=== PATIENT | female | born 1940 | race Caucasian/White ===

== ENCOUNTER 2020-01-13 22:21 | Emergency (ER) | payer MEDICARE, OTHER ==
[2020-01-13 22:44] VITALS: BP 174/89; PULSE 66
--- NOTE | 2020-01-13 22:54 | EDM.PDOC ---
ED HPI GENERAL MEDICAL PROBLEM - General Chief Complaint: General Stated Complaint: VISION PROBLEMS Time Seen by Provider: 01/13/20 22:51 Source of Information: Reports: Patient History Limitations: Reports: No Limitations - History of Present Illness INITIAL COMMENTS - FREE TEXT/NARRATIVE: c/o on-off visual problem where things look distorted today. take coumadin for it past 30 years, denies TAVARES/ hitting head, denies blurred or double vision. right now everything is normal. - Related Data Allergies Allergy/AdvReac Type Severity Reaction Status Date / Time pravastatin [From Pravachol] Allergy Cannot Verified 01/13/20 22:54 Remember Home Meds: Home Meds Acetaminophen [Tylenol Extra Strength] 1 tab PO Q6H PRN 10/08/16 [History] Celecoxib [CeleBREX] 200 mg PO DAILY 10/08/16 [History] HCTZ/Triamterene [Maxzide 25-37.5 MG] 1 tab PO DAILY 10/08/16 [History] Omeprazole 20 mg PO DAILY 10/08/16 [History] Oxybutynin Chloride 5 mg PO DAILY PRN 10/08/16 [History] Warfarin Sodium [Coumadin] 7.5 mg PO .6 DAYS A WEEK 10/08/16 [History] Warfarin [Coumadin] 5 mg PO .Friday10/08/16 [History] atenoloL [Tenormin] 50 mg PO BID 10/08/16 [History] Betamethasone/Clotrimazole [Lotrisone] 15 gm TOP BID PRN 01/13/20 [History] Calcium Carb, Citrate/Vit D3 [Calcium + D3 ER Tablet] 1,500 mg PO DAILY 01/13/20 [History] Losartan Potassium 50 mg PO BEDTIME 01/13/20 [History] Rosuvastatin Calcium 20 mg PO BEDTIME 01/13/20 [History] Ubidecarenone [Co Q-10] 100 mg PO BEDTIME 01/13/20 [History] polyethylene glycoL 3350 [Miralax] 17 gm PO ASDIRECTED PRN 01/13/20 [History] rOPINIRole [Requip] 2 mg PO BEDTIME 01/13/20 [History] Past Medical History HEENT History: Reports: Cataract Cardiovascular History: Reports: Blood Clots/VTE/DVT, Hypertension, Other (See Below) Other Cardiovascular History: 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 Gastrointestinal History: Reports: Chronic Constipation, GERD, Irritable Bowel Syndrome Genitourinary History: Reports: Other (See Below) Other Genitourinary History: overactive bladder Musculoskeletal History: Reports: Arthritis Neurological History: Reports: None Oncologic (Cancer) History: Reports: Basal Cell Carcinoma - Infectious Disease History Infectious Disease History: Reports: Chicken Pox, Measles - Past Surgical History Head Surgeries/Procedures: Reports: None HEENT Surgical History: Reports: Adenoidectomy, Cataract Surgery, Tonsillectomy Cardiovascular Surgical History: Reports: None GI Surgical History: Reports: Colonoscopy, EGD, Polypectomy Female Surgical History: Reports: Hysterectomy, Other (See Below) Other Female Surgeries/Procedures: anterior posterior uterine surgery Neurological Surgical History: Reports: Other (See Below) Other Neurological Surgeries/Procedures: kyphoplasty Musculoskeletal Surgical History: Reports: Other (See Below) Other Musculoskeletal Surgeries/Procedures:: right ankle replaced Oncologic Surgical History: Reports: Other (See Below) Other Oncologic Surgeries/Procedures: biopsy of nose Dermatological Surgical History: Reports: Skin Biopsy, Other (See Below) Social & Family History - Family History Family Medical History: Noncontributory - Caffeine Use Caffeine Use: Reports: Coffee ED ROS GENERAL - Review of Systems Review Of Systems: Comprehensive ROS is negative, except as noted in HPI. ED EXAM, GENERAL - Physical Exam Exam: See Below Exam Limited By: No Limitations General Appearance: Alert, WD/WN, Mild Distress, Other (upset) Eye Exam: Bilateral Eye: PERRL (pupils ER @ 4mm) Ears: Hearing Grossly Normal Throat/Mouth: Normal Voice, No Airway Compromise Head: Atraumatic Neck: Non-Tender, Full Range of Motion Respiratory/Chest: No Respiratory Distress Cardiovascular: Regular Rate, Rhythm GI/Abdominal: Soft, Non-Tender Neurological: Alert, Oriented, Normal Cognition, Normal Gait, No Motor/Sensory Deficits Psychiatric: Flat Affect Skin Exam: Warm, Dry, Normal Color Lymphatic: No Adenopathy Course - Vital Signs Last Recorded V/S: Last Vital Signs Temp 35.9 C L 01/13/20 22:40 Pulse 66 01/13/20 22:40 Resp 22 H 01/13/20 22:40 BP 174/89 H 01/13/20 22:40 Pulse Ox 99 01/13/20 22:40 - Orders/Labs/Meds Labs: Laboratory Tests 01/13/20 01/13/20 01/13/20 Range/Units 22:35 22:35 22:35 WBC 7.1 (5.0-10.0) 10^3/uL RBC 4.48 (4.2-5.4) 10^6/uL Hgb 14.2 (12.0-16.0) g/dL Hct 39.8 (37.0-47.0) % MCV 88.8 (80-100) fL MCH 31.7 (27.0-34.0) pg MCHC 35.7 H (33.0-35.0) g/dL Plt Count 305 (150-450) 10^3/uL Neut % (Auto) 69.8 (42.2-75.2) % Lymph % (Auto) 17.0 L (20.5-50.1) % [place] % (Auto) 11.8 H (2-8) % Eos % (Auto) 1.1 (1.0-3.0) % Baso % (Auto) 0.3 (0.0-1.0) % PT 17.9 H (9.0-12.0) SEC INR 1.9 H (0.9-1.2) Sodium 125 L (136-145) mmol/L Potassium 3.9 (3.5-5.1) mmol/L Chloride 87 L (98-107) mmol/L Carbon Dioxide 30 (21-32) mmol/L Anion Gap 11.9 (7-13) mEq/L BUN 18 (7-18) mg/dL Creatinine 1.06 H (0.55-1.02) mg/dL Est Cr Clr Drug Dosing 37.45 mL/min Estimated GFR (MDRD) 50 BUN/Creatinine Ratio 17.0 (No establ ref range) Glucose 70 L (74-99) mg/dL Calcium 8.9 (8.5-10.1) mg/dL Total Bilirubin 0.7 (0.2-1.0) mg/dL AST 30 (15-37) U/L ALT 29 (14-59) U/L Alkaline Phosphatase 77 (46-116) U/L Total Protein 7.9 (6.4-8.2) g/dL Albumin 4.0 (3.4-5.0) g/dL Globulin 3.9 Albumin/Globulin Ratio 1.0 - Re-Assessments/Exams Free Text/Narrative Re-Assessment/Exam: 01/13/20 23:56 results discussed with pt who is feeling fine and no vision problems. Departure - Departure Time of Disposition: 23:57 Disposition: Home, Self-Care 01 Condition: Good Clinical Impression: Visual disturbance - Discharge Information Instructions: Visual Disturbances Forms: ED Department Discharge Additional Instructions: 1) use regular salt 2) follow up with family doctor 3) return if there is any change or concern Sepsis Event Note (ED) - Evaluation Sepsis Screening Result: No Definite Risk - Focused Exam Vital Signs: Vital Signs Temp Pulse Resp BP Pulse Ox 01/13/20 22:40 35.9 C L 66 22 H 174/89 H 99
[2020-01-13 23:06] LABS: ANION GAP 11.9 mEq/L (7-13)
--- NOTE | 2020-01-13 23:30 | CT ---
PROCEDURE INFORMATION: Exam: CT Head Without Contrast Exam date and time: 01/13/2020 11:10 PM Age: 79 years old Clinical indication: Visual disturbance; Additional info: Visual disturbance, ? stroke, mass, bleed TECHNIQUE: Imaging protocol: Computed tomography of the head without contrast. Radiation optimization: All CT scans at this facility use at least one of these dose optimization techniques: automated exposure control; mA and/or kV adjustment per patient size (includes targeted exams where dose is matched to clinical indication); or iterative reconstruction. Other technique: STROKE PROTOCOL was implemented. COMPARISON: No relevant prior studies available. FINDINGS: Brain: Age-related involutional changes and chronic microvascular ischemic disease. No evidence for acute transcortical infarct. No mass effect or midline shift. No extra-axial collection. No acute intracranial hemorrhage. Basal cisterns are patent. Ventricles: Normal. No ventriculomegaly. Bones/joints: Unremarkable. No acute fracture. Sinuses: Visualized sinuses are unremarkable. No fluid levels. Mastoid air cells: Visualized mastoid air cells are well aerated. Orbits: Bilateral cataract surgery. Soft tissues: Unremarkable. IMPRESSION: No evidence for acute transcortical infarct, acute intracranial hemorrhage, or mass effect. [place] Stroke Program Early CT Score (ASPECTS) = 10
== END 2020-01-14 00:04 | disposition home or self-care (01) ==
LOC: DL.ED 22:21
DX: H53.9 Unspecified visual disturbance (principal); I10 Essential (primary) hypertension; K21.9 Gastro-esophageal reflux disease without esophagitis; Z90.710 Acquired absence of both cervix and uterus; Z90.49 Acquired absence of other specified parts of digestive tract; Z88.8 Allergy status to other drugs, medicaments and biological substances; Z79.899 Other long term (current) drug therapy
CPT/HCPCS: 36415; 70450; 80053; 85025; 85610; 99285-25

== ENCOUNTER 2021-10-05 11:23 | Inpatient (IN) | payer MEDICARE, OTHER ==
[2021-10-05] MEDS ORDERED: Sodium Chloride 0.9% 1,000 ML IV ONE (12:01)
[2021-10-05 13:55] LABS: CORONAVIRUS COVID-19 NAA NEGATIVE (NEGATIVE)
[2021-10-05] MEDS ORDERED: Acetaminophen/HYDROcodone 325-10 MG Tab PO PRN (15:43)
[2021-10-05] MEDS ORDERED: Docusate Sodium 100 MG Cap PO PRN ×3 (15:45→18:56)
[2021-10-05] MEDS ORDERED: Albuterol/Ipratropium 3.0-0.5 MG/3 ML Neb Soln NEB PRN ×2 (15:45→18:55)
[2021-10-05] MEDS ORDERED: Magnesium Hydroxide 400 MG/5 ML Susp 30 ML Cup PO PRN ×2 (15:45→18:57)
[2021-10-05] MEDS ORDERED: Ondansetron 4 MG/2 ML SDV IVPUSH PRN (15:45)
[2021-10-05] MEDS ORDERED: Polyethylene Glycol 3350 Powder 17 GM Packet PO PRN (15:45)
[2021-10-05] MEDS ORDERED: Bisacodyl 5 MG Tab PO PRN ×2 (15:45→18:55)
[2021-10-05 16:17] LABS: ANION GAP 18.1 mEq/L (7-13); CHLORIDE,CL 87 mmol/L (98-107); SODIUM,NA 123 mmol/L (136-145)
[2021-10-05] MEDS ORDERED: HYDROmorphone 1 MG/ML Syringe IVPUSH PRN (16:33)
[2021-10-05] MEDS ORDERED: Indomethacin 25 MG Cap PO ONE (16:46)
[2021-10-05] MEDS ORDERED: Colchicine 0.6 MG Tab PO ONE (16:48)
[2021-10-05] MEDS ORDERED: predniSONE 20 MG Tab PO ONE (16:53)
[2021-10-05] MEDS ORDERED: Pantoprazole 40 MG Vial IVPUSH SCH (17:00)
[2021-10-05] MEDS ORDERED: hydrALAZINE 20 MG/ML SDV IVPUSH PRN ×2 (17:20→18:56)
[2021-10-05] MEDS ORDERED: Metoprolol Tartrate 5 MG/5 ML SDV IVPUSH PRN ×2 (17:20→18:57)
[2021-10-05] MEDS: Sodium Chloride 0.9% 1,000 ML IV SCH (17:22)
[2021-10-05] MEDS ORDERED: Colchicine 0.6 MG Tab ONE (18:21)
[2021-10-05] MEDS ORDERED: predniSONE 20 MG Tab ONE (18:21)
[2021-10-05] MEDS ORDERED: Indomethacin 25 MG Cap ONE (18:21)
[2021-10-05] MEDS: Pantoprazole 40 MG Vial IVPUSH SCH (22:13)
[2021-10-05] MEDS: Acetaminophen/HYDROcodone 325-10 MG Tab PO PRN (22:35)
[2021-10-05] MEDS ORDERED: Bisacodyl 10 MG Supp RECTAL PRN (22:48)
[2021-10-06] MEDS: Sodium Chloride 0.9% 1,000 ML IV SCH ×2 (03:18→21:13)
[2021-10-06] MEDS ORDERED: Indomethacin 25 MG Cap PO SCH (06:00)
[2021-10-06 06:38] LABS: ANION GAP 14.5 mEq/L (7-13)
[2021-10-06] MEDS: Pantoprazole 40 MG Vial IVPUSH SCH ×2 (06:55→21:18)
[2021-10-06] MEDS ORDERED: predniSONE 20 MG Tab PO SCH (08:00)
[2021-10-06] MEDS ORDERED: Colchicine 0.6 MG Tab PO SCH (09:00)
[2021-10-06] MEDS: Colchicine 0.6 MG Tab PO SCH (09:07)
[2021-10-06] MEDS: predniSONE 20 MG Tab PO SCH (09:07)
[2021-10-06] MEDS: Indomethacin 25 MG Cap PO SCH ×2 (09:08→18:21)
[2021-10-06] MEDS ORDERED: Piperacillin/Tazobactam 3.375 GM in Sodium Chloride 0.9% 100 ML IV SCH (10:45)
[2021-10-06] MEDS ORDERED: Betamethasone Dipropionate/Clotrimazole 0.05-1% Crm 15 GM Tube TOP PRN (11:54)
[2021-10-06] MEDS: Piperacillin/Tazobactam 2.25 GM in Sodium Chloride 0.9% 50 ML IV SCH ×2 (12:57→21:46)
[2021-10-06] MEDS: Acetaminophen/HYDROcodone 325-10 MG Tab PO PRN ×2 (13:55→21:28)
[2021-10-06] MEDS: HYDROmorphone 1 MG/ML Syringe IVPUSH PRN (16:17)
[2021-10-06] MEDS ORDERED: Sodium Chloride 0.9% 500 ML IV SCH (19:30)
[2021-10-06] MEDS: Ondansetron 4 MG/2 ML SDV IVPUSH PRN (20:03)
[2021-10-06] MEDS ORDERED: Metoprolol Tartrate 5 MG/5 ML SDV IVPUSH PRN (20:30)
[2021-10-06] MEDS ORDERED: Non-Formulary Medication 1 Each (Ubidecarenone [Co Q-10] 100 MG Capsule) PO SCH (21:00)
[2021-10-06] MEDS ORDERED: rOPINIRole 2 MG Tab PO SCH (21:00)
[2021-10-06] MEDS: Saccharomyces Boulardii (Probiotic) 250 MG Cap PO SCH (21:23)
[2021-10-06] MEDS: Atenolol 50 MG Tab PO SCH (21:23)
[2021-10-07] MEDS: HYDROmorphone 1 MG/ML Syringe IVPUSH PRN (01:39)
[2021-10-07] MEDS: Piperacillin/Tazobactam 2.25 GM in Sodium Chloride 0.9% 50 ML IV SCH ×3 (04:19→20:48)
[2021-10-07] MEDS: Pantoprazole 40 MG Vial IVPUSH SCH ×3 (06:48→22:06)
[2021-10-07] MEDS: Ondansetron 4 MG/2 ML SDV IVPUSH PRN (08:12)
[2021-10-07] MEDS: Sodium Chloride 0.9% 1,000 ML IV SCH ×2 (08:13→18:38)
[2021-10-07] MEDS: Saccharomyces Boulardii (Probiotic) 250 MG Cap PO SCH ×2 (09:19→22:05)
[2021-10-07] MEDS: Calcium Carbonate/Vitamin D3 1250 MG-5 MCG Tab PO SCH (09:20)
[2021-10-07] MEDS: Indomethacin 25 MG Cap PO SCH (09:20)
[2021-10-07] MEDS: predniSONE 20 MG Tab PO SCH (09:22)
[2021-10-07] MEDS: Atenolol 50 MG Tab PO SCH ×2 (09:29→22:06)
[2021-10-07] MEDS: Colchicine 0.6 MG Tab PO SCH (09:30)
[2021-10-07] MEDS ORDERED: HYDROmorphone 1 MG/ML Syringe IVPUSH PRN (10:24)
[2021-10-07 11:02] LABS: ANION GAP 17.7 mEq/L (7-13)
[2021-10-07] MEDS ORDERED: Sodium Bicarbonate 100 MEQ in Dextrose 5% in Water 1,000 ML IV ONE ×2 (11:59)
[2021-10-07] MEDS: Acetaminophen/HYDROcodone 325-10 MG Tab PO PRN ×2 (15:31→22:06)
[2021-10-07] MEDS: Allopurinol 100 MG Tab PO SCH (18:37)
[2021-10-08] MEDS: Piperacillin/Tazobactam 2.25 GM in Sodium Chloride 0.9% 50 ML IV SCH ×2 (03:47→11:14)
[2021-10-08] MEDS: Ondansetron 4 MG/2 ML SDV IVPUSH PRN ×2 (04:03→11:05)
[2021-10-08] MEDS ORDERED: Sodium Bicarbonate 100 MEQ in Dextrose 5% in Water 1,000 ML IV ONE ×2 (05:00)
[2021-10-08 07:15] LABS: ANION GAP 17.8 mEq/L (7-13)
[2021-10-08] MEDS: Pantoprazole 40 MG Vial IVPUSH SCH (08:25)
[2021-10-08] MEDS: Calcium Carbonate/Vitamin D3 1250 MG-5 MCG Tab PO SCH (08:30)
[2021-10-08] MEDS: predniSONE 20 MG Tab PO SCH (10:01)
[2021-10-08] MEDS: Allopurinol 100 MG Tab PO SCH (10:01)
[2021-10-08] MEDS: Colchicine 0.6 MG Tab PO SCH (10:02)
[2021-10-08] MEDS: Atenolol 50 MG Tab PO SCH (10:02)
[2021-10-08] MEDS: Saccharomyces Boulardii (Probiotic) 250 MG Cap PO SCH (10:02)
[2021-10-08 13:11] VITALS: BP 136/64; PULSE 69
[2021-10-08] MEDS ORDERED: HYDROmorphone 1 MG/ML Syringe IVPUSH ONE (14:30)
[2021-10-08] MEDS ORDERED: Metoclopramide 10 MG/2 ML SDV IVPUSH ONE (14:30)
[2021-10-08] MEDS ORDERED: Scopolamine 1.5 MG Transdermal Patch TRDERM PRN (14:30)
== END 2021-10-08 15:00 | DRG 683 ==
LOC: DL.ED 11:23 → DL.MS 14:55 → DL.ED 15:05
PROVIDERS: ADMIT Internal Medicine; ATTEND Internal Medicine
PROC: 02HV33Z Insertion of Infusion Device into Superior Vena Cava, Percutaneous Approach (ICD-10-PCS; principal; 2021-10-08)
DX: N17.9 Acute kidney failure, unspecified (principal); E87.1 Hypo-osmolality and hyponatremia; D72.825 Bandemia; D68.59 Other primary thrombophilia; E87.2 Acidosis; R78.81 Bacteremia; M10.9 Gout, unspecified; M13.0 Polyarthritis, unspecified; M19.90 Unspecified osteoarthritis, unspecified site; K21.9 Gastro-esophageal reflux disease without esophagitis; F41.9 Anxiety disorder, unspecified; K58.1 Irritable bowel syndrome with constipation; R79.1 Abnormal coagulation profile; D72.829 Elevated white blood cell count, unspecified; E87.8 Other disorders of electrolyte and fluid balance, not elsewhere classified; R73.9 Hyperglycemia, unspecified; R74.01 Elevation of levels of liver transaminase levels; R74.8 Abnormal levels of other serum enzymes; Z20.822 Contact with and (suspected) exposure to COVID-19; E66.9 Obesity, unspecified; E88.09 Other disorders of plasma-protein metabolism, not elsewhere classified; I10 Essential (primary) hypertension; E78.5 Hyperlipidemia, unspecified; K57.90 Diverticulosis of intestine, part unspecified, without perforation or abscess without bleeding; M79.7 Fibromyalgia; N32.81 Overactive bladder; Z79.01 Long term (current) use of anticoagulants; Z86.718 Personal history of other venous thrombosis and embolism; Z85.828 Personal history of other malignant neoplasm of skin; Z88.8 Allergy status to other drugs, medicaments and biological substances; Z68.35 Body mass index [BMI] 35.0-35.9, adult; Z79.899 Other long term (current) drug therapy
CPT/HCPCS: 0240U; 36415; 51702; 73562; 76705; 76770; 80048; 80053; 80143; 81001; 82306; 82977; 83605; 83735; 84300; 84550; 85025; 85610; 85651; 86140; 87040; 87077; 87186; 93005; 96360; 99222; 99232; 99238; 99285; 99284; A9270-GY; C9113; J1170; J2405; J2543; J2765; J7030; J7040; J7060; J7512